=== PATIENT | female | born 1995 | race Caucasian/White ===

== ENCOUNTER → 2022-03-07 | Outpatient (CLI) | payer BC ==
[2022-03-07 10:59] LABS: BASO % 0.4 % (0.0-2.0); EOS # 0.1 K/mm3 (0.0-0.7); EOS % 1.6 % (0.0-4.0); GRAN # 2.7 K/mm3 (1.4-6.5); GRAN % 54.7 % (42.2-75.2); HEMATOCRIT 37.9 % (37.0-47.0); LYMPH # 1.6 K/mm3 (1.2-3.4); LYMPH % 33.3 % (20.0-51.0); MEAN CELL VOLUME 88 fl (80.0-100.0); MEAN CORPUSCULAR HEMOGLOBIN 30 pg (27-31); MEAN CORPUSCULAR HGB CONC 34 g/dl (33.0-37.0); MEAN PLATELET VOLUME 11.1 fl (7.4-10.4); MONO # 0.5 K/mm3 (0.1-0.6); PLATELET COUNT 220 K/mm3 (130-400); RED BLOOD COUNT 4.33 M/mm3 (4.10-5.30)
[2022-03-07 11:22] LABS: ALBUMIN 4.1 gm/dL (3.5-5.0); BILIRUBIN,TOTAL 0.8 mg/dL (0.2-1.2); CALCIUM 9.1 mg/dL (8.4-10.2); CREATININE, serum 0.73 mg/dL (0.57-1.11); POTASSIUM 3.9 mmol/L (3.5-4.5)
[2022-03-07 11:42] LABS: THYROID STIMULATING HORMONE 2.756 uIU/mL (0.350-4.940)
== END ==
LOC: COL.LAB 10:18
DX: E27.40 Unspecified adrenocortical insufficiency (principal); E03.8 Other specified hypothyroidism; D64.9 Anemia, unspecified

== ENCOUNTER 2022-10-23 04:00 | Emergency (ER) | payer BC ==
[~2022-10-23] VITALS: Ht 170.2 cm; Wt 68.2 kg
[2022-10-23] MEDS ORDERED: FLORINEF ACETA0.1 MG PO (04:13)
[2022-10-23] MEDS ORDERED: SYNTHROID0.05 MG/TA PO (04:14)
[2022-10-23] MEDS ORDERED: CORTEF5 MG PO (04:15)
[2022-10-23 04:47] LABS: COLLECTION METHOD CLEAN CATCH
[2022-10-23 04:53] LABS: BASO % 0.3 % (0.0-2.0); EOS % 0.2 % (0.0-4.0); GRAN # 12.3 K/mm3 (1.4-6.5); GRAN % 86.8 % (42.2-75.2); HEMATOCRIT 44.4 % (37.0-47.0); HEMOGLOBIN 15.2 g/dl (12.5-16.0); LYMPH # 1.2 K/mm3 (1.2-3.4); LYMPH % 8.5 % (20.0-51.0); MEAN CELL VOLUME 88 fl (80.0-100.0); MEAN CORPUSCULAR HEMOGLOBIN 30 pg (27-31); MEAN CORPUSCULAR HGB CONC 34 g/dl (33.0-37.0); MEAN PLATELET VOLUME 9.9 fl (7.4-10.4); MONO # 0.6 K/mm3 (0.1-0.6); PLATELET COUNT 212 K/mm3 (130-400); RED BLOOD COUNT 5.05 M/mm3 (4.10-5.30); REDCELL DISTRIBUTION WIDTH-CV 12.1 % (11.5-14.5)
[2022-10-23 05:16] LABS: ALBUMIN 3.9 gm/dL (3.5-5.0); BILIRUBIN,TOTAL 0.8 mg/dL (0.2-1.2); CALCIUM 8.9 mg/dL (8.4-10.2); CREATININE, serum 0.77 mg/dL (0.57-1.11); POTASSIUM 3.1 mmol/L (3.5-4.5); TOTAL PROTEIN 7.1 gm/dL (6.2-8.1)
[2022-10-23 05:17] LABS: PH 5.5 (5.0-8.5); URINE APPEARANCE Clear (CLEAR/HAZY); URINE BLOOD Negative (NEGATIVE); URINE COLOR Yellow (YELLOW); URINE GLUCOSE Negative (NEGATIVE); URINE KETONE Negative (NEGATIVE); URINE NITRATE Negative (NEGATIVE); URINE PROTEIN(semi-quant) Negative (NEGATIVE); URINE UROBILINOGEN 0.2 E.U/dL (0.2-1.0)
[2022-10-23 06:08] VITALS: BP 111/63; PULSE 80
[2022-10-23] MEDS ORDERED: ZOFRAN ODT4 MG PO (06:10)
[2022-10-23 06:19] VITALS: TEMP 98.3
== END 2022-10-23 06:19 | disposition home or self-care (01) ==
LOC: COL.ER 04:00
PROVIDERS: Emergency Medicine
DX: R50.9 Fever, unspecified (principal); R10.31 Right lower quadrant pain; R10.33 Periumbilical pain; D72.829 Elevated white blood cell count, unspecified; E87.6 Hypokalemia; Z20.822 Contact with and (suspected) exposure to COVID-19
CPT/HCPCS: J1720; J1885; J2405; J7030; Q9967